=== PATIENT | female | born 1990 | race American Indian/Alaskan Native ===

== ENCOUNTER 2020-08-14 18:02 | Emergency (ER) | payer MEDICAID ==
--- NOTE | 2020-08-14 18:20 | Emergency Department Report ---
History of Present Illness - General Stated Complaint: OVERDOSE Time Seen by Provider: 08/14/20 18:08 Source: patient, EMS Mode of arrival: Stretcher Limitations: No Limitations - History of Present Illness Initial Comments: Chief complaint: Overdose HPI: This is a 29-year-old female with history of depression who presents after overdose of cocaine and heroin. She snorted a mixture of cocaine and heroine. She became unresponsive. Friend at the [facility] room called 911. Upon EMS arrival patient was unresponsive with agonal breathing. Patient was breathing 2-3 times per minute. Patient required ventilation with Ambu bag while EMS personnel obtain IV access. Patient received total 4 mg of naloxone 2 doses of 2 mg each. She was in her normal state of health this morning. She has not had any recent illness. She works at a retirement. Past medical history: None Past surgical history: 4 C-sections Patient does not take any medications No known drug allergies Patient does use tobacco, alcohol, cocaine, marijuana. MD Complaint: accidental overdose -: This afternoon How Overdose Was Discovered: family/friend present Context: Accidental Overdose: wanted to get high - Related Data Home Medications Medication Instructions Recorded Confirmed Last Taken Valacyclovir HCl [Valacyclovir] 500 mg PO DAILY 08/05/13 08/21/13 08/04/13 08:00 500 mg Previous Rx's Medication Instructions Recorded Last Taken Type Ferrous Sulfate [Feosol 325 MG tab] 325 mg PO QDAY #60 tablet 08/24/13 Unknown Rx HYDROcodone/APAP 5-325 [[place] 1 each PO Q6H PRN #30 tablet 08/24/13 Unknown Rx 5-325 mg TAB] Ibuprofen [Motrin 600 MG tab] 800 mg PO Q8H PRN #30 tablet 08/24/13 Unknown Rx Vit-Fe Fumar-FA [ 1 each PO QDAY #30 tablet 08/24/13 Unknown Rx Vitamin] Allergies Allergy/AdvReac Type Severity Reaction Status Date / Time No Known Allergies Allergy Verified 08/21/13 11:19 ED Review of Systems ROS: Stated complaint: OVERDOSE Other details as noted in HPI Comment: All other systems reviewed and negative Constitutional: denies: fever, malaise Respiratory: denies: cough, shortness of breath Cardiovascular: denies: chest pain Gastrointestinal: denies: abdominal pain, nausea, vomiting Psychiatric: denies: anxiety, depression, auditory hallucinations, visual hallucinations, homicidal thoughts, suicidal thoughts ED Past Medical Hx - Past Medical History Previous Medical History?: Yes Hx Hypertension: No Hx Congestive Heart Failure: No Hx Diabetes: No Hx Deep Vein Thrombosis: No Hx Renal Disease: No Hx Sickle Cell Disease: No Hx Seizures: No Hx Psychiatric Treatment: Yes (Depression) Hx Asthma: No Hx COPD: No Hx HIV: No - Surgical History Past Surgical History?: Yes Additional Surgical History: section x4 - Social History Smoking Status: Current Every Day Smoker Substance Use Type: Alcohol, Cocaine, Heroin, Marijuana - Medications Home Medications: Home Medications Medication Instructions Recorded Confirmed Last Taken Type Valacyclovir HCl [Valacyclovir] 500 mg PO DAILY 08/05/13 08/21/13 08/04/13 08:00 History 500 mg Ferrous Sulfate [Feosol 325 MG tab] 325 mg PO QDAY #60 tablet 08/24/13 Unknown Rx HYDROcodone/APAP 5-325 [[place] 1 each PO Q6H PRN #30 tablet 08/24/13 Unknown Rx 5-325 mg TAB] Ibuprofen [Motrin 600 MG tab] 800 mg PO Q8H PRN #30 tablet 08/24/13 Unknown Rx Vit-Fe Fumar-FA [ 1 each PO QDAY #30 tablet 08/24/13 Unknown Rx Vitamin] ED Physical Exam - General General appearance: alert, in no apparent distress - Head Head exam: Present: atraumatic, normocephalic - Eye Eye exam: Present: normal appearance - ENT ENT exam: Present: mucous membranes moist - Neck Neck exam: Present: normal inspection, full ROM - Respiratory Respiratory exam: Present: normal lung sounds bilaterally. Absent: respiratory distress, wheezes, rales, rhonchi - Cardiovascular Cardiovascular Exam: Present: regular rate, normal rhythm, normal heart sounds. Absent: systolic murmur, diastolic murmur, rubs, gallop - GI/Abdominal GI/Abdominal exam: Present: soft, normal bowel sounds. Absent: distended, tenderness, guarding, rebound - Extremities Exam Extremities exam: Present: normal inspection - Back Exam Back exam: Present: normal inspection - Neurological Exam Neurological exam: Present: alert, oriented X3 - Psychiatric Psychiatric exam: Present: normal affect, normal mood. Absent: depressed, agitated, anxious, flat affect, manic, homicidal ideation, suicidal ideation - Skin Skin exam: Present: warm, dry, intact, normal color. Absent: rash ED Course Vital Signs 08/14/20 08/14/20 18:26 20:20 Temperature 98.5 F Pulse Rate 101 H 78 Respiratory 15 22 Rate Blood Pressure 115/70 118/75 [Left] O2 Sat by Pulse 100 98 Oximetry ED Medical Decision Making - Medical Decision Making Unintentional overdose of cocaine and heroin. Patient denies suicidal ideation. She denies depression. Patient observed for 4 hours on cardiac monitoring and pulse oximetry without recurrence of respiratory depression or decreased level of consciousness. Patient does have a history of depression. However she repeatedly denies suicidal ideation. She states that she is homeless. Her children reside with their father. She is discharged home. Critical care attestation.: If time is entered above; I have spent that time in minutes in the direct care of this critically ill patient, excluding procedure time. ED Disposition Clinical Impression: Accidental heroin overdose, Cocaine use, History of depression Disposition: DC-01 TO HOME OR SELFCARE Is pt being admited?: No Does the pt Need Aspirin: No Condition: Stable Instructions: Opioid Overdose Referrals: [facility] [Outside] - 3-5 Days Forms: Work/School Release Form(ED)
[2020-08-14] MEDS ORDERED: ONDANSETRON 4 MG/2 ML INJ IV ONE (19:21)
[2020-08-14 22:21] VITALS: BP 123/74
== END 2020-08-14 22:23 | disposition home or self-care (01) ==
LOC: ED 18:02
DX: T40.1X1A Poisoning by heroin, accidental (unintentional), initial encounter (principal); F14.10 Cocaine abuse, uncomplicated; F32.9 Major depressive disorder, single episode, unspecified; F17.200 Nicotine dependence, unspecified, uncomplicated; F12.10 Cannabis abuse, uncomplicated; Z98.890 Other specified postprocedural states; Z79.899 Other long term (current) drug therapy; Y92.89 Other specified places as the place of occurrence of the external cause
CPT/HCPCS: 96374; 99284; J2405

== ENCOUNTER 2020-08-17 11:39 | Emergency (ER) | payer MEDICAID ==
[2020-08-17 11:52] VITALS: BP 126/80
--- NOTE | 2020-08-17 12:27 | Emergency Department Report ---
Chief Complaint: Eye Problems Stated Complaint: EYE IRRITATION Time Seen by Provider: 08/17/20 12:08 - HPI History of Present Illness: Patient complains of bilateral redness to the eyes x3 days. Patient states that she believes she burst of blood vessel. She reports that the redness popped up after she got in a coughing fit. She denies any pain to her eyes, vision changes, eye discharge, difficulty moving her eyes, headache, foreign body sensation, contact lens wearing, or trauma to the eyes. Bilateral subconjunctival hemorrhage noted on exam, likely due to increased pressure from coughing. Recommend follow-up outpatient with primary care doctor. Her vitals are normal, she is well-appearing, she is stable for discharge home. Discussed subconjunctival hemorrhage care and signs and symptoms that should prompt immediate return to the emergency department in detail patient verbalized - Exam Vital Signs: Vital Signs 08/17/20 11:47 Temperature 98.2 F Pulse Rate 85 Respiratory 14 Rate Blood Pressure 126/80 O2 Sat by Pulse 100 Oximetry MSE screening note: Focused history and physical exam performed. Due to findings the following was ordered: ED Disposition for MSE Is pt being admited?: No Condition: Stable Instructions: Subconjunctival Hemorrhage Referrals: [facility] [Provider Group] - 3-5 Days ED Physical Exam - General Limitations: No Limitations General appearance: alert, in no apparent distress - Head Head exam: Present: atraumatic, normocephalic - Eye Eye exam: Present: PERRL, EOMI. Absent: scleral icterus - Expanded Eye Exam Expanded Sclera/Conjunctival: Hemorrhage: Bilateral (Subconjunctival; small lateral) - ENT ENT exam: Present: normal orophraynx - Neck Neck exam: Present: normal inspection, full ROM - Respiratory Respiratory exam: Present: normal lung sounds bilaterally. Absent: respiratory distress - Cardiovascular Cardiovascular Exam: Present: regular rate - Back Exam Back exam: Present: full ROM - Neurological Exam Neurological exam: Present: alert, oriented X3, CN II-XII intact, normal gait. Absent: motor sensory deficit - Psychiatric Psychiatric exam: Present: normal affect, normal mood - Skin Skin exam: Present: warm, dry, intact, normal color. Absent: rash ED Review of Systems ROS: Stated complaint: EYE IRRITATION Other details as noted in HPI Constitutional: denies: chills, diaphoresis, fever, malaise, weakness Eyes: denies: eye pain, vision change ENT: denies: ear pain Respiratory: denies: shortness of breath Cardiovascular: denies: chest pain Skin: denies: change in color Neurological: denies: headache, weakness, numbness, paresthesias, confusion, vertigo
== END 2020-08-17 13:08 | disposition left against medical advice (07) ==
LOC: ED 11:39
DX: H92.03 Otalgia, bilateral (principal); Z53.21 Procedure and treatment not carried out due to patient leaving prior to being seen by health care provider